=== PATIENT | female | born 1940 | race Caucasian/White ===

== ENCOUNTER 2021-10-06 18:22 | Emergency (ER) | payer MEDICARE, MEDICAID ==
[2021-10-06] MEDS ORDERED: Lidocaine 1% 5 ML VIAL INJECT ONE ×2 (18:23→18:29)
[2021-10-06] MEDS ORDERED: Lidocaine 1% 5 ML VIAL ONE (18:53)
[2021-10-06] MEDS ORDERED: Bacitracin/Neomycin/Polymyxin B Oint 0.9 GM U/D Packet ONE (19:23)
[2021-10-06 20:22] VITALS: BP 133/92; PULSE 61
== END 2021-10-06 19:40 | disposition home or self-care (01) ==
LOC: LL.ED 18:22 → SUPCPDRO 18:22 → LL.ED 19:40
DX: S81.012A Laceration without foreign body, left knee, initial encounter (principal); I48.91 Unspecified atrial fibrillation; I11.9 Hypertensive heart disease without heart failure; E78.00 Pure hypercholesterolemia, unspecified; Z86.73 Personal history of transient ischemic attack (TIA), and cerebral infarction without residual deficits; Z79.01 Long term (current) use of anticoagulants; W01.198A Fall on same level from slipping, tripping and stumbling with subsequent striking against other object, initial encounter
CPT/HCPCS: 12004; 12034; 73562-LT; 99283-25; 99284

== ENCOUNTER 2021-10-12 10:05 | Inpatient (IN) | payer MEDICARE, MEDICAID ==
[2021-10-12] MEDS ORDERED: Diphtheria,Pertussis(Acell),Tetanus Vaccine 0.5 ML Syringe IM ONE (10:40)
[2021-10-12 11:21] LABS: ANION GAP 6.4 meq/L (7-15); CHLORIDE,CL 103 mmol/L (98-107); SODIUM,NA 140 mmol/L (136-145)
[2021-10-12] MEDS ORDERED: Sodium Chloride 0.9% 10 ML Syringe FLUSH PRN (12:24)
[2021-10-12] MEDS ORDERED: Polyethylene Glycol 3350 Powder 17 GM Packet PO PRN (12:24)
[2021-10-12] MEDS: Sodium Chloride 0.9% 10 ML Syringe FLUSH PRN (12:52)
[2021-10-12] MEDS: cefTRIAXone 1 GM in Sodium Chloride 0.9% 100 ML IV SCH (12:52)
[2021-10-12] MEDS ORDERED: Ondansetron 4 MG Tab.DIS PO PRN (13:00)
[2021-10-12] MEDS ORDERED: Acetaminophen 325 MG Tab PO PRN (13:00)
[2021-10-12] MEDS: Albuterol 0.083% 2.5 MG/3 ML Neb Soln NEB PRN (22:28)
[2021-10-13] MEDS: Sodium Chloride 0.9% 10 ML Syringe FLUSH PRN (00:18)
[2021-10-13] MEDS: cefTRIAXone 1 GM in Sodium Chloride 0.9% 100 ML IV SCH ×3 (00:19→23:42)
[2021-10-13] MEDS ORDERED: Warfarin 5 MG Tab PO SCH (08:00)
[2021-10-13 08:45] LABS: CHLORIDE,CL 102 mmol/L (98-107); SODIUM,NA 139 mmol/L (136-145)
[2021-10-13 08:50] LABS: ANION GAP 9.7 meq/L (7-15)
[2021-10-13] MEDS: Rosuvastatin 10 MG Tab PO SCH (09:03)
[2021-10-13] MEDS: Escitalopram 20 MG Tab PO SCH (09:04)
[2021-10-13] MEDS: Losartan 50 MG Tab PO SCH (09:05)
[2021-10-13] MEDS: Chlorthalidone 25 MG Tab PO SCH (09:06)
[2021-10-13] MEDS ORDERED: Bacitracin/Neomycin/Polymyxin B Oint 0.9 GM U/D Packet ONE (09:57)
[2021-10-13] MEDS ORDERED: Morphine 2 MG/ML SYRINGE ONE (10:06)
[2021-10-13] MEDS ORDERED: Morphine 2 MG/ML SYRINGE IVPUSH ONE (10:24)
[2021-10-13] MEDS ORDERED: Bacitracin/Neomycin/Polymyxin B Oint 0.9 GM U/D Packet TOP ONE (10:25)
[2021-10-13] MEDS: Albuterol 0.083% 2.5 MG/3 ML Neb Soln NEB PRN (22:19)
[2021-10-14] MEDS: Rosuvastatin 10 MG Tab PO SCH (08:08)
[2021-10-14] MEDS: Escitalopram 20 MG Tab PO SCH (08:09)
[2021-10-14] MEDS: Chlorthalidone 25 MG Tab PO SCH (08:10)
[2021-10-14] MEDS: Losartan 50 MG Tab PO SCH (08:10)
[2021-10-14 09:15] LABS: ANION GAP 11.1 meq/L (7-15)
[2021-10-14] MEDS: cefTRIAXone 1 GM in Sodium Chloride 0.9% 100 ML IV SCH (12:32)
[2021-10-14] MEDS ORDERED: Bacitracin/Neomycin/Polymyxin B Oint 0.9 GM U/D Packet ONE (14:57)
[2021-10-14] MEDS ORDERED: Bacitracin/Neomycin/Polymyxin B Oint 0.9 GM U/D Packet TOP ONE (15:13)
[2021-10-14] MEDS ORDERED: Vancomycin 1.5 GM in Sodium Chloride 0.9% 500 ML IV ONE (15:30)
[2021-10-14] MEDS: Albuterol 0.083% 2.5 MG/3 ML Neb Soln NEB PRN (21:27)
[2021-10-15 07:45] LABS: CHLORIDE,CL 106 mmol/L (98-107); SODIUM,NA 144 mmol/L (136-145)
[2021-10-15 07:52] LABS: ANION GAP 10.5 meq/L (7-15)
[2021-10-15] MEDS: Chlorthalidone 25 MG Tab PO SCH (08:59)
[2021-10-15] MEDS: Escitalopram 20 MG Tab PO SCH (09:00)
[2021-10-15] MEDS: Losartan 50 MG Tab PO SCH (09:00)
[2021-10-15] MEDS: Rosuvastatin 10 MG Tab PO SCH (09:00)
[2021-10-15] MEDS ORDERED: Warfarin 5 MG Tab PO ONE (09:41)
[2021-10-15] MEDS ORDERED: Sodium Chloride 0.9% 1,000 ML IV SCH (10:30)
[2021-10-15] MEDS: Potassium Chloride Riders 10 MEQ in Premix Bag 1 BAG IV SCH ×4 (11:50→15:43)
[2021-10-15] MEDS: Sodium Chloride 0.9% 10 ML Syringe FLUSH PRN (11:54)
[2021-10-15] MEDS: Clindamycin HCl 150 MG Cap PO SCH ×2 (14:18→19:53)
[2021-10-15] MEDS ORDERED: Potassium Chloride Riders 50 ML ONE (15:37)
[2021-10-16] MEDS: Clindamycin HCl 150 MG Cap PO SCH (07:47)
[2021-10-16] MEDS: Losartan 50 MG Tab PO SCH (07:48)
[2021-10-16] MEDS: Escitalopram 20 MG Tab PO SCH (07:48)
[2021-10-16] MEDS: Rosuvastatin 10 MG Tab PO SCH (07:48)
[2021-10-16 07:52] LABS: CHLORIDE,CL 107 mmol/L (98-107); SODIUM,NA 144 mmol/L (136-145)
[2021-10-16 07:53] LABS: ANION GAP 8.4 meq/L (7-15)
[2021-10-16] MEDS ORDERED: Warfarin 5 MG Tab PO SCH (08:00)
[2021-10-16] MEDS ORDERED: Potassium Chloride 20 MEQ Tab.ER PO ONE (08:08)
[2021-10-16] MEDS ORDERED: Magnesium Oxide 400 MG Tab PO ONE (08:08)
[2021-10-16] MEDS: Chlorthalidone 25 MG Tab PO SCH (08:09)
[2021-10-16 08:25] VITALS: PULSE 79
[2021-10-16 09:44] VITALS: BP 165/76
== END 2021-10-16 09:15 | disposition home or self-care (01) | DRG 603 ==
LOC: LL.ED 10:05 → LL.MS 11:52
PROVIDERS: ADMIT Hospitalist; ATTEND Hospitalist
DX: L03.116 Cellulitis of left lower limb (principal); I48.11 Longstanding persistent atrial fibrillation; I69.354 Hemiplegia and hemiparesis following cerebral infarction affecting left non-dominant side; I48.91 Unspecified atrial fibrillation; I50.32 Chronic diastolic (congestive) heart failure; I42.9 Cardiomyopathy, unspecified; E87.6 Hypokalemia; H54.7 Unspecified visual loss; E78.00 Pure hypercholesterolemia, unspecified; K59.09 Other constipation; R32 Unspecified urinary incontinence; M19.90 Unspecified osteoarthritis, unspecified site; M54.9 Dorsalgia, unspecified; G89.29 Other chronic pain; M54.2 Cervicalgia; M81.0 Age-related osteoporosis without current pathological fracture; F41.9 Anxiety disorder, unspecified; F32.A Depression, unspecified; E66.9 Obesity, unspecified; M85.80 Other specified disorders of bone density and structure, unspecified site; J44.9 Chronic obstructive pulmonary disease, unspecified; G25.0 Essential tremor; E78.2 Mixed hyperlipidemia; I48.0 Paroxysmal atrial fibrillation; I11.0 Hypertensive heart disease with heart failure; Z68.37 Body mass index [BMI] 37.0-37.9, adult; Z79.01 Long term (current) use of anticoagulants; Z79.899 Other long term (current) drug therapy; Z91.81 History of falling
CPT/HCPCS: 36415; 80048; 80053; 83735; 84100; 85025; 85027; 85610; 86140; 87040; 90471; 90715; 93971; 94640; 99232; 99238; 99284; A9270-GY; J0696; J2270; J3370; J3480; J3490; J7030; J7040; J7050; J7613-GY